=== PATIENT | male | born 1945 | race Asian ===

== ENCOUNTER 2017-03-04 07:13 | Inpatient (IN) | payer MEDICAID, MEDICARE, OTHER ==
[~2017-03-04] VITALS: Ht 188 cm; Wt 86.0 kg
[~2017-03-04 07:13] MED LIST: CIP250 PO; [UNRECOGNIZED DRUG - REMARK]
[2017-03-04] MEDS ORDERED: LISI-662 PO (07:20)
[2017-03-04] MEDS ORDERED: TRAZ-147 PO (07:20)
[2017-03-04] MEDS ORDERED: MIRT30 PO (07:20)
[2017-03-04] MEDS ORDERED: ATOR20TA86 PO (07:20)
[2017-03-04] MEDS ORDERED: METO-323 PO (07:20)
[2017-03-04] MEDS ORDERED: FINA5TAB41 PO (07:20)
[2017-03-04 07:40] LABS: BASOPHILS % (AUTO) 0.2 % (0.0-2.0); EOSINOPHILS % (AUTO) 0.1 % (1.0-6.0); HEMATOCRIT 51.3 % (41-53); HEMOGLOBIN 16.7 g/dL (13.5-17.5); LYMPHOCYTES # (AUTO) 1.4 K/uL (1.0-4.8); LYMPHOCYTES % (AUTO) 7.1 % (22.0-44.0); MEAN CORPUSCULAR HEMOGLOBIN 30.9 pg (26.0-34.0); MEAN CORPUSCULAR HGB CONC 32.5 G/dL (31.0-37.0); MEAN CORPUSCULAR VOLUME 95 fL (80-100); MONOCYTES # (AUTO) 2.3 K/uL (0.1-1.0); MONOCYTES % (AUTO) 11.7 % (2.0-9.0); NEUTROPHILS % (AUTO) 80.9 % (40.0-70.0); PLATELET COUNT (AUTO) 191 K/uL (150-450); RED BLOOD CELL COUNT(AUTO) 5.38 MIL/uL (4.50-5.90); WHITE BLOOD COUNT (AUTO) 19.8 K/uL (4.5-11.0)
[2017-03-04 07:52] LABS: ANION GAP 11 mmol/L (8-16); CALCIUM, TOTAL 8.9 mg/dL (8.8-10.5); CARBON DIOXIDE 25 mmol/L (22-29); CHLORIDE 103 mmol/L (98-107); CREATININE 1.47 mg/dL (0.60-1.30); GLOMERULAR FILTR. RATE CALC 47 mL/min (>60); POTASSIUM 4.3 mmol/L (3.5-5.1); SODIUM SERUM 139 mmol/L (136-145); UREA NITROGEN, BLOOD 17 mg/dL (7-18)
[2017-03-04 07:55] LABS: INR 1.1 (0.9-1.1); PROTHROMBIN TIME 11.8 SEC (9.4-11.6)
[2017-03-04 07:59] LABS: ALANINE AMINOTRANSFERASE 18 U/L (12-78); ALBUMIN 3.5 g/dL (3.4-5.0); ASPARTATE AMINOTRANSFERASE 15 U/L (15-37); BILIRUBIN,TOTAL 0.8 mg/dL (0.1-1.0); CREATINE KINASE, TOTAL 42 U/L (39-308); TOTAL PROTEIN, SERUM 7.8 g/dL (6.4-8.2)
[2017-03-04 08:04] LABS: B-TYPE NATRIURETIC PEPTIDE 13 pg/mL (0-100)
[2017-03-04] MEDS ORDERED: PHENYLEPHRINE/PROMETH/CODEINE 5 ML ORAL.SYG PO ONE (09:15)
[2017-03-04] MEDS ORDERED: CefTRIAXone 1 GM/DEXTROSE 50 ML IV ONE (09:30)
[2017-03-04] MEDS ORDERED: AZITHROMYCIN 500 MG/NS 250 ML IV ONE (09:30)
[2017-03-04] MEDS ORDERED: SODIUM CHLORIDE 0.9% 1,000 ML IV ONE (09:45)
[2017-03-04] MEDS ORDERED: MAGNESIUM HYDROXIDE SUSPENSION 30 ML UDCUP PO PRN (09:45)
[2017-03-04] MEDS ORDERED: ACETAMINOPHEN 325 MG TABLET PO PRN (09:45)
[2017-03-04 09:51] LABS: LACTIC ACID 2.2 mmol/L (0.4-2.0)
[2017-03-04 11:08] LABS: REFLEX LACTIC ACID? YES YES
[2017-03-04] MEDS: OxyCODONE HCL/ACETAMINOPHEN 5-325 MG TABLET PO PRN ×3 (12:21→21:11)
[2017-03-04] MEDS ORDERED: SODIUM CHLORIDE 0.9% 500 ML IV ONE ×2 (13:00)
[2017-03-04] MEDS ORDERED: ALBUTEROL SULFATE 2.5 MG/0.5 ML NEB SOLUTION NEB ONE (13:00)
[2017-03-04] MEDS ORDERED: IPRATROPIUM BROMIDE 0.5 MG/2.5 ML NEB SOLUTION NEB ONE (13:00)
[2017-03-04 13:32] LABS: GLUCOSE, URINE (UA) NEGATIVE (NEGATIVE); KETONES,URINE TRACE mg/dL (NEGATIVE); LEUKOCYTE ESTERASE ,URINE TRACE (NEGATIVE); OCCULT BLOOD,URINE SMALL (NEGATIVE); PROTEIN,URINE POS 1+ (NEGATIVE)
[2017-03-04 13:36] LABS: ADD UA MICROSCOPIC YES; APPEARANCE,URINE HAZY (CLEAR)
[2017-03-04 13:37] LABS: SQUAMOUS EPITHELIAL CELL,UR Few /LPF (None Seen)
[2017-03-04 15:49] VITALS: BP 126/70
[2017-03-04] MEDS: HEPARIN SODIUM,PORCINE 5,000 UNITS/ML VIAL SQ SCH (16:53)
[2017-03-04 19:38] VITALS: BP 111/72
[2017-03-04] MEDS: DOCUSATE SODIUM 100 MG CAPSULE PO SCH (21:11)
[2017-03-04] MEDS: TraZODone HCL 100 MG TABLET PO SCH (21:21)
[2017-03-05] VITALS (7 sets, daily range): BP systolic 105–120; BP diastolic 62–73
[2017-03-05] MEDS: HEPARIN SODIUM,PORCINE 5,000 UNITS/ML VIAL SQ SCH ×4 (00:01→23:43)
[2017-03-05] MEDS: OxyCODONE HCL/ACETAMINOPHEN 5-325 MG TABLET PO PRN ×4 (02:28→20:25)
[2017-03-05 06:22] LABS: BASOPHILS # (AUTO) 0.06 K/uL (0.00-0.20); BASOPHILS % (AUTO) 0.4 % (0.0-2.0); EOSINOPHILS # (AUTO) 0.14 K/uL (0.00-0.70); EOSINOPHILS % (AUTO) 0.89 % (1.0-6.0); HEMATOCRIT 44.1 % (41-53); HEMOGLOBIN 14.6 g/dL (13.5-17.5); LYMPHOCYTES # (AUTO) 1.7 K/uL (1.0-4.8); MEAN CORPUSCULAR HEMOGLOBIN 31.4 pg (26.0-34.0); MEAN CORPUSCULAR HGB CONC 33.2 G/dL (31.0-37.0); MEAN CORPUSCULAR VOLUME 95 fL (80-100); MONOCYTES # (AUTO) 2.2 K/uL (0.1-1.0); MONOCYTES % (AUTO) 14.3 % (2.0-9.0); NEUTROPHILS # (AUTO) 11.4 K/uL (1.8-7.7); NEUTROPHILS % (AUTO) 73.5 % (40.0-70.0); PLATELET COUNT (AUTO) 178 K/uL (150-450); RED BLOOD CELL COUNT(AUTO) 4.67 MIL/uL (4.50-5.90); RED CELL DISTRIBUTION WIDTH 12.9 % (11.5-14.5); WHITE BLOOD COUNT (AUTO) 15.5 K/uL (4.5-11.0)
[2017-03-05 06:31] LABS: CALCIUM, TOTAL 8.1 mg/dL (8.8-10.5); CREATININE 1.28 mg/dL (0.60-1.30); POTASSIUM 4.1 mmol/L (3.5-5.1)
[2017-03-05] MEDS ORDERED: SODIUM CHLORIDE 0.9% 250 ML IV ONE (07:40)
[2017-03-05] MEDS: CefTRIAXone 1 GM/DEXTROSE 50 ML IV SCH (07:54)
[2017-03-05] MEDS: DOCUSATE SODIUM 100 MG CAPSULE PO SCH ×2 (08:33→20:25)
[2017-03-05] MEDS: PANTOPRAZOLE SODIUM 40 MG DR TABLET PO SCH (08:33)
[2017-03-05] MEDS: ALBUTEROL SULFATE 2.5 MG/0.5 ML NEB SOLUTION NEB PRN ×2 (08:43→15:49)
[2017-03-05] MEDS: IPRATROPIUM BROMIDE 0.5 MG/2.5 ML NEB SOLUTION NEB PRN ×2 (08:43→15:49)
[2017-03-05] MEDS: AZITHROMYCIN 500 MG/NS 250 ML IV SCH (09:07)
[2017-03-05] MEDS: TraZODone HCL 100 MG TABLET PO SCH (20:25)
[2017-03-06 03:37] VITALS: BP 137/79
[2017-03-06] MEDS: OxyCODONE HCL/ACETAMINOPHEN 5-325 MG TABLET PO PRN ×4 (03:47→18:04)
[2017-03-06 06:39] LABS: BASOPHILS % (AUTO) 0.4 % (0.0-2.0); HEMATOCRIT 42.4 % (41-53); HEMOGLOBIN 13.7 g/dL (13.5-17.5); LYMPHOCYTES # (AUTO) 1.1 K/uL (1.0-4.8); LYMPHOCYTES % (AUTO) 9.6 % (22.0-44.0); MEAN CORPUSCULAR HEMOGLOBIN 31.2 pg (26.0-34.0); MEAN CORPUSCULAR HGB CONC 32.4 G/dL (31.0-37.0); MEAN CORPUSCULAR VOLUME 96 fL (80-100); MONOCYTES # (AUTO) 1.4 K/uL (0.1-1.0); NEUTROPHILS # (AUTO) 8.7 K/uL (1.8-7.7); PLATELET COUNT (AUTO) 175 K/uL (150-450); RED BLOOD CELL COUNT(AUTO) 4.41 MIL/uL (4.50-5.90); RED CELL DISTRIBUTION WIDTH 13.5 % (11.5-14.5); WHITE BLOOD COUNT (AUTO) 11.5 K/uL (4.5-11.0)
[2017-03-06 07:26] VITALS: BP 115/68
[2017-03-06] MEDS: DOCUSATE SODIUM 100 MG CAPSULE PO SCH (07:53)
[2017-03-06] MEDS: HEPARIN SODIUM,PORCINE 5,000 UNITS/ML VIAL SQ SCH ×2 (07:53→16:27)
[2017-03-06] MEDS: PANTOPRAZOLE SODIUM 40 MG DR TABLET PO SCH (07:53)
[2017-03-06] MEDS: CefTRIAXone 1 GM/DEXTROSE 50 ML IV SCH (07:53)
[2017-03-06] MEDS: AZITHROMYCIN 500 MG/NS 250 ML IV SCH (10:22)
[2017-03-06] MEDS ORDERED: AZIT250T6 PO (10:58)
[2017-03-06] MEDS ORDERED: TRAM50TA4 PO (10:58)
[2017-03-06 11:37] VITALS: BP 100/73
== END 2017-03-06 20:00 | disposition home or self-care (01) | DRG 682 ==
LOC: EMS 07:15 → 5S 14:49 → 6N 03-05 16:30
PROVIDERS: ADMIT Internal Medicine; ATTEND Internal Medicine
DX: N17.9 Acute kidney failure, unspecified (principal); J18.9 Pneumonia, unspecified organism; J44.0 Chronic obstructive pulmonary disease with (acute) lower respiratory infection; I10 Essential (primary) hypertension; F17.210 Nicotine dependence, cigarettes, uncomplicated; R53.81 Other malaise; M19.90 Unspecified osteoarthritis, unspecified site; E78.00 Pure hypercholesterolemia, unspecified; Z86.73 Personal history of transient ischemic attack (TIA), and cerebral infarction without residual deficits; Z98.890 Other specified postprocedural states; Z71.6 Tobacco abuse counseling; Z79.899 Other long term (current) drug therapy
CPT/HCPCS: 83605; 87040; 93005; 94640; 96361; 96365; 96366; 96368; 97161; 99285; J0456; J0696; J1644; J2370; J7040; J7050